=== PATIENT | female | born 1975 | race African-American/Black ===

== ENCOUNTER 2021-03-16 16:52 | Emergency (ER) | payer MEDICARE, OTHER ==
[~2021-03-16] VITALS: Ht 157.5 cm; Wt 100.0 kg
[~2021-03-16 16:52] MED LIST: ALPR0.25 PO; LEXAPRO20 MG PO
[2021-03-16 18:00] VITALS: BP 169/91
--- NOTE | 2021-03-16 18:39 | PHYS DOC ---
Past Medical History Past Medical History: Anxiety, Other Additional Past Medical Histor: chronic neck pain Past Surgical History: , Hysterectomy, Tonsillectomy, Tubal ligation, Other Additional Past Surgical Histo: Ovarian cyst,Tumor R)index,Uterine Fibroids Smoking Status: Current Every Day Smoker Alcohol Use: Occasionally Drug Use: None General Adult EDM: Chief Complaint: KNEE INJURY HPI: HPI: Patient is a 45 year old female who presents to the ED today complaining of mild intermittent right anterior knee pain that began on Tuesday after she fell down. Patient states she was carrying some boxes when she fell on her bilateral knees. She states the pain is worse on weightbearing. Denies anything specifically relieving the pain. Denies hitting her head on the ground when she fell. Denies any loss of consciousness. Review of Systems: Review of Systems: Constitutional: Denies fever or chills. [] Musculoskeletal: Reports right knee pain. Denies back pain Integument: Denies rash. [] Neurologic: Denies headache, focal weakness or sensory changes. [] Psychiatric: Denies depression or anxiety. [] Heart Score: C/O Chest Pain: N/A Risk Factors: Risk Factors: DM, Current or recent (<one month) smoker, HTN, HLP, family history of CAD, obesity. Risk Scores: Score 0 - 3: 2.5% MACE over next 6 weeks - Discharge Home Score 4 - 6: 20.3% MACE over next 6 weeks - Admit for Clinical Observation Score 7 - 10: 72.7% MACE over next 6 weeks - Early Invasive Strategies Allergies: Allergies: Allergies Coded Allergies Type Severity Reaction Last Updated Verified prochlorperazine Allergy Unknown Becomes Combative. 09/13/14 Yes Physical Exam: PE: Constitutional: Well developed, well nourished, no acute distress, non-toxic appearance. [] Skin: Warm, dry, no erythema, no rash. [] Back: No tenderness, no CVA tenderness. [] Extremities: Right knee with no obvious deformity. Diffuse tenderness on palpation of the anterior aspect of the knee. Full passive range of motion to the right knee, negative Merry sign, negative Lizzette sign, negative anterior posterior drawer sign. +2 right pedal pulse. Neurologic: Alert and oriented X 3, normal motor function, normal sensory function, no focal deficits noted. [] Psychologic: Affect normal, judgement normal, mood normal. [] EKG: EKG: [] Radiology/Procedures: Radiology/Procedures: []PROCEDURE: KNEE RIGHT 4V XR KNEE 4 VIEWS WITH PATELLA_RT 03/16/2021 6:16 PM INDICATION: Fall COMPARISON: None available. TECHNIQUE: 4 views of the right knee are provided. FINDINGS/ IMPRESSION: Small knee joint effusion although evaluation limited by positioning. There is no acute fracture or dislocation. Joint spaces are maintained. Bone mineralization is within normal limits. Regional soft tissues are within normal limits. There is no soft tissue gas or osseous erosion. No radiopaque foreign body. Patellar enthesopathy. Electronically signed by: Sharif Bliss MD (03/16/2021 6:40 PM) [facility] DICTATED and SIGNED BY: SHARIF BLISS MD DATE: 03/16/21 [id number] 0 Course & Med Decision Making: Course & Med Decision Making Pertinent Labs and Imaging studies reviewed. (See chart for details) This a 45-year-old female patient presented to the ED today with right knee pain after falling on Tuesday. Right knee x-rays interpreted by radiologist are negative for any acute findings, noted for small joint effusion to the right knee. Jayden wrap applied to the right knee by me. Ice elevation encouraged. Follow-up with orthopedic doctor in 1 week. Rosmery Disclaimer: Rosmery Disclaimer: This electronic medical record was generated, in whole or in part, using a voice recognition dictation system. Departure Departure Impression: Primary Impression: Contusion of right knee Qualified Codes: S80.01XA - Contusion of right knee, initial encounter Additional Impressions: Fall from standing Qualified Codes: W19.XXXA - Unspecified fall, initial encounter Joint effusion of knee Qualified Codes: M25.461 - Effusion, right knee Disposition: HOME / SELF CARE / HOMELESS Condition: STABLE Referrals: NON,STAFF (PCP) JULIAN DIALLO DO follow up in one week Patient Instructions: Knee Pain, [id number] Additional Instructions: You were seen for right knee pain, your right knee x-rays were negative for any acute findings, you have a small joint effusion/fluid in your knee. This will be absorbed by your body over time. Try and keep the knee wrapped in an Jayden bandage as tolerated. Try to ice and elevate the extremity. Anti- inflammatories like naproxen will help with this condition. Please follow-up with orthopedic doctor provided KELI ROGERS APRN Mar 16, 2021 18:39
--- NOTE | 2021-03-16 18:42 | RAD ---
XR KNEE 4 VIEWS WITH PATELLA_RT 03/16/2021 6:16 PM INDICATION: Fall COMPARISON: None available. TECHNIQUE: 4 views of the right knee are provided. FINDINGS/ IMPRESSION: Small knee joint effusion although evaluation limited by positioning. There is no acute fracture or d islocation. Joint spaces are maintained. Bone mineralization is within normal limits. Regional soft t issues are within normal limits. There is no soft tissue gas or osseous erosion. No radiopaque foreig n body. Patellar enthesopathy. Electronically signed by: Brittany Bliss MD (03/16/2021 6:40 PM) [facility]
== END 2021-03-16 19:25 | disposition home or self-care (01) ==
LOC: ER 16:52
DX: S80.01XA Contusion of right knee, initial encounter (principal); M25.461 Effusion, right knee; G89.29 Other chronic pain; F17.200 Nicotine dependence, unspecified, uncomplicated; Z88.8 Allergy status to other drugs, medicaments and biological substances; W18.39XA Other fall on same level, initial encounter; Y93.89 Activity, other specified; Y92.89 Other specified places as the place of occurrence of the external cause; Y99.8 Other external cause status
CPT/HCPCS: 73564; 99283